=== PATIENT | female | born 1995 | race Caucasian/White ===

== ENCOUNTER → 2016-10-17 | Outpatient (REF) | payer BC ==
[~2016-10-17] MED LIST: /MOM400 PO; ACET50TA PO; ANUS2.5C2 TOP; DOCU10ELUD PO; IBUP600T26 PO; IBUP60TA PO; No Historical Meds; PERCOCET PO
[2016-10-17 17:13] LABS: MEAN CORPUSCULAR HEMOGLOBIN 26.5 pg (27.0-33.0); MEAN CORPUSCULAR HGB CONC 32.4 g/dl (32.0-36.5); MEAN CORPUSCULAR VOLUME 81.9 fl (80.0-96.0); RED CELL DISTRIBUTION WIDTH 14.1 % (11.5-14.5)
[2016-10-17 17:25] LABS: ALBUMIN 4.2 GM/DL (3.2-5.2); ALBUMIN/GLOBULIN RATIO 1.31 (1.00-1.93); ALKALINE PHOSPHATASE 99 U/L (45-117); ALT/SGPT 17 U/L (12-78); ANION GAP 7 MEQ/L (8-16); AST/SGOT 13 U/L (15-37); BILIRUBIN,TOTAL 0.8 MG/DL (0.2-1.0); BLOOD UREA NITROGEN 9 MG/DL (7-18); CALCIUM LEVEL 8.7 MG/DL (8.5-10.1); CARBON DIOXIDE LEVEL 28 MEQ/L (21-32); CHLORIDE LEVEL 108 MEQ/L (98-107); CHOLESTEROL LEVEL 177 MG/DL (<200); CREATININE FOR GFR 0.69 MG/DL (0.55-1.02); GLOMERULAR FILTRATION RATE > 60.0 (>60); GLUCOSE, FASTING 85 MG/DL (70-105); POTASSIUM SERUM 4.2 MEQ/L (3.5-5.1); SODIUM LEVEL 143 MEQ/L (136-145); TOTAL PROTEIN 7.4 GM/DL (6.4-8.2); TRIGLYCERIDES LEVEL 96 MG/DL (<150)
== END ==
LOC: M SFHCCLAY 10:35
PROVIDERS: ATTEND Family Medicine
DX: R51 Headache (principal); R63.5 Abnormal weight gain

== ENCOUNTER → 2016-10-23 | Outpatient (CLI) | payer BC ==
[2016-10-23 14:21] LABS: FREE T4 1.04 NG/DL (0.76-1.46)
== END ==
LOC: M SMT 10:28
PROVIDERS: ATTEND Advanced Practice Midwife
DX: N92.0 Excessive and frequent menstruation with regular cycle (principal)

== ENCOUNTER → 2017-04-29 | Outpatient (REF) | payer BC ==
[~2017-04-29] MED LIST changes: +INDO25CA PO; +PROZ20CA11 PO
[2017-05-02 14:17] LABS: Lyme Disease IgG/IgM Antibodie <0.91 ISR (0.00-0.90); Lyme Disease IgM Ab Quantitati <0.80 index (0.00-0.79); WEST NILE VIRUS ANTIBODY IgM Negative (Negative)
== END ==
LOC: M SFHCCLAY 11:42
PROVIDERS: ATTEND Family Medicine
DX: R50.9 Fever, unspecified (principal)

== ENCOUNTER 2017-05-05 11:22 | Emergency (ER) | payer BC ==
[~2017-05-05] VITALS: Ht 170.2 cm; Wt 68.2 kg
[~2017-05-05 11:22] MED LIST changes: -INDO25CA PO; -PROZ20CA11 PO
[2017-05-05] MEDS ORDERED: PROZ20CA11 PO (11:32)
[2017-05-05] MEDS ORDERED: KETOROLAC 30 MG/ML VIAL (J1885) IV ONE (12:00)
[2017-05-05] MEDS ORDERED: NS 1,000 ML IV ONE (12:00)
[2017-05-05] MEDS ORDERED: ACETAMINOPHEN 325 MG TAB PO ONE (12:00)
[2017-05-05 12:32] LABS: BASO % 0.6 % (0.0-1.0); EOS # 0.1 K/mm3 (0.0-0.50); EOS % 1.6 % (0.0-3.0); LARGE UNSTAINED CELL # 0.1 K/mm3 (0.0-0.4); LARGE UNSTAINED CELL % 2.2 % (0.0-4.0); LYMPH # 1.6 K/mm3 (1.5-6.5); LYMPH % 32.1 % (24.0-44.0); MEAN CORPUSCULAR HEMOGLOBIN 30.2 pg (27.0-33.0); MEAN CORPUSCULAR HGB CONC 35.1 g/dl (32.0-36.5); MEAN CORPUSCULAR VOLUME 85.9 fl (80.0-96.0); MONO # 0.3 K/mm3 (0.0-0.8); MONO % 6.1 % (0.0-5.0); NEUTROPHILS # 2.7 K/mm3 (1.8-7.7); NEUTROPHILS % 57.3 % (36.0-66.0); PLATELET COUNT, AUTOMATED 312 k/mm3 (150-450); RED CELL DISTRIBUTION WIDTH 12.6 % (11.5-14.5); WHITE BLOOD COUNT 4.8 K/mm3 (4.0-10.0)
[2017-05-05 12:55] LABS: ALBUMIN 3.6 GM/DL (3.2-5.2); ALBUMIN/GLOBULIN RATIO 0.88 (1.00-1.93); ALKALINE PHOSPHATASE 99 U/L (45-117); ALT/SGPT 19 U/L (12-78); ANION GAP 7 MEQ/L (8-16); AST/SGOT 14 U/L (15-37); BILIRUBIN,DIRECT < 0.1 MG/DL (0.0-0.2); BILIRUBIN,TOTAL 0.4 MG/DL (0.2-1.0); BLOOD UREA NITROGEN 10 MG/DL (7-18); CALCIUM LEVEL 8.6 MG/DL (8.5-10.1); CARBON DIOXIDE LEVEL 26 MEQ/L (21-32); CHLORIDE LEVEL 106 MEQ/L (98-107); CREATININE FOR GFR 0.71 MG/DL (0.55-1.02); GLOMERULAR FILTRATION RATE > 60.0 (>60); GLUCOSE, FASTING 86 MG/DL (70-105); SODIUM LEVEL 139 MEQ/L (136-145); TOTAL PROTEIN 7.7 GM/DL (6.4-8.2)
--- NOTE | 2017-05-05 12:57 | REP ---
REASON FOR EXAM: Headache. PRIORS: None. TECHNIQUE: 4.5 mm contiguous transaxial sections were obtained from the skull base to the cerebral convexities with thin cuts through the posterior fossa without the administration of intravenous contrast. FINDINGS: The ventricles and sulci are consistent with the patient's age. There are no extra-axial fluid collections. There is no mass effect. The deep cerebral white matter is consistent with the patient's age. The orbital and petrous structures , cerebellopontine angles, and posterior fossa are unremarkable. The sella turcica, cavernous, and paracavernous structures are essentially unremarkable. The visualized portions of the paranasal sinuses and mastoid air cells are clear. Images of the skull base show no gross abnormality. IMPRESSION: Essentially unremarkable CT examination of the brain. Signed by Hernesto Tan DO 05/05/2017 01:22 P
[2017-05-05] MEDS ORDERED: INDO25CA PO (13:11)
[2017-05-05 13:23] VITALS: BP 126/65
[2017-05-14 00:07] LABS: BABESIA MICROTI PCR Negative (Negative)
== END 2017-05-05 13:27 | disposition home or self-care (01) ==
LOC: M ED 11:22
DX: R51 Headache (principal); Z79.899 Other long term (current) drug therapy
CPT/HCPCS: 70450; 80048; 80076; 81025; 85025; 86140; 87798; 96361; 96374; 99283; J1885

== ENCOUNTER → 2017-05-09 | Outpatient (CLI) | payer BC ==
[~2017-05-09] MED LIST changes: +INDO25CA PO; +PROZ20CA11 PO
--- NOTE | 2017-05-09 13:53 | REP ---
REASON: Headaches. No priors for comparison. Previous brain CT of 05/05/2014 was normal. TECHNIQUE: Sagittal T1. Axial T2, FLAIR, DWI and ADC. FINDINGS: The craniocervical junction is normal. There is no cerebellar tonsillar ectopia. The visualized portions of the spinal cord and neural canal are within normal limits. The ventricles and sulci are within normal limits for the patient's age. There are no extra-axial fluid collections. There is no shift of the midline structures. The deep cerebral white matter is within normal limits. Diffusion weighted images and ADC mapping shows no signal abnormality. The orbital and petrous structures, cerebellopontine angles, and posterior fossa are within normal limits. The sella turcica, cavernous and paracavernous structures are within normal limits. The visualized portions of the paranasal sinuses and the mastoid air cells are clear. IMPRESSION: Unremarkable MRI examination of the brain. Signed by Hernesto Tan DO 05/09/2017 02:27 P
== END ==
LOC: M PLARAD 10:26
PROVIDERS: ATTEND Family Medicine
DX: G44.52 New daily persistent headache (NDPH) (principal)

== ENCOUNTER → 2017-09-23 | Outpatient (REF) | payer BC | LOC: M SFHCCLAY 09:59 | PROVIDERS: ATTEND Nurse Practitioner Family | DX: J02.9 Acute pharyngitis, unspecified (principal) ==

== ENCOUNTER → 2017-11-25 | Outpatient (REF) | payer BC | LOC: M LAB REF 14:48 | DX: Z12.4 Encounter for screening for malignant neoplasm of cervix (principal) | CPT/HCPCS: G0123 ==

== ENCOUNTER → 2018-01-28 | Outpatient (REF) | payer BC | LOC: M SFHCCLAY 14:58 | DX: H10.30 Unspecified acute conjunctivitis, unspecified eye (principal) ==

== ENCOUNTER → 2018-12-04 | Outpatient (REF) | payer BC | LOC: M LAB REF 17:10 | PROVIDERS: ATTEND Advanced Practice Midwife | DX: Z12.4 Encounter for screening for malignant neoplasm of cervix (principal) ==

== ENCOUNTER → 2019-07-07 | Outpatient (REF) | payer BC ==
[~2019-07-07] MED LIST changes: -/MOM400 PO; -ACET50TA PO; -DOCU10ELUD PO; +DOCU5LIQ PO; +IBUP600T42 PO; -IBUP60TA PO; +INDO-16 PO; -INDO25CA PO; +MAPA500T17 PO; +MILK10SU PO
== END ==
LOC: M SFHCCLAY 13:36
PROVIDERS: ATTEND Nurse Practitioner Family
DX: J02.9 Acute pharyngitis, unspecified (principal)

== ENCOUNTER → 2020-12-22 | Outpatient (CLI) | payer BC ==
[~2020-12-22] MED LIST changes: +PROHANCE 279.3MG/ML 15ML VIAL As Ordered ONE
--- NOTE | 2020-12-25 09:18 | REP ---
INDICATION: BREAST LUMP AND NIPPLE ANOMALLY. Patient reports a growth on the right nipple x2 years. COMPARISON: No comparison breast imaging. TECHNIQUE: Three Ange MRI imaging was performed with a dedicated breast coil. Axial, coronal, and sagittal T1 and T2 weighted scans were obtained with and without fat saturation in the usual fashion. The study includes dynamically acquired post gadolinium-enhanced imaging with image subtraction. Maximum intensity projection and multi planar reformation imaging is included as well. This study is interpreted with the aid of FoodynD, an FDA approved computer aided detection (CAD) software program, on a dedicated breast MRI workstation. The gadolinium enhancement dose is 14 mL of intravenous ProHance. FINDINGS: There is a moderate amount of fibroglandular tissue bilaterally corresponding with the mammographic pattern. There is marked background parenchymal enhancement. There is no evidence of axillary lymphadenopathy or significant breast cystic change. High-resolution pre and post-contrast T1 and T2 weighted scans show no suspicious morphologic abnormality in either breast. Dynamically acquired sequential postcontrast images show no suspicious area of enhancement and washout kinetics in either breast to suggest malignancy. Subtraction images show no additional abnormality. There is no observable mass in either nipple. There is a small triangular area of T2 hyperintensity and predominantly sub threshold contrast enhancement in the lateral aspect of the right nipple and adjacent subareolar region. The area of enhancement measures approximately 5 mm. This is slightly asymmetric. Study is otherwise unremarkable. IMPRESSION: BI-RADS category 3 probably benign findings. 5 mm area of slightly asymmetric T2 hyperintensity and sub threshold contrast enhancement in the lateral aspect of the right nipple. This should be correlated with physical exam findings. If histologic sampling is not elected at this time, follow-up MRI study in 6 months time should be considered. Otherwise negative MRI findings.. <Electronically signed by Pola Alegria > 12/25/20 [id number]
== END ==
LOC: M RAD 14:35
PROVIDERS: ATTEND Surgery
DX: N63.0 Unspecified lump in unspecified breast (principal); Q83.9 Congenital malformation of breast, unspecified
CPT/HCPCS: A9576; C8908

== ENCOUNTER → 2021-01-03 | Outpatient (REF) | payer BC ==
[~2021-01-03] MED LIST changes: -PROHANCE 279.3MG/ML 15ML VIAL As Ordered ONE
== END ==
LOC: M SFHCWAGY 09:07
PROVIDERS: ATTEND Surgery
DX: Q83.9 Congenital malformation of breast, unspecified (principal)

== ENCOUNTER 2021-02-13 06:17 | Day surgery (SDC) | payer BC ==
[~2021-02-13] VITALS: Ht 170.2 cm; Wt 73.9 kg
[~2021-02-13 06:17] MED LIST changes: +PREVTAB2 PO
[2021-02-13] MEDS ORDERED: HEPARIN SOD (PORCINE) 5000UNITS/ML 1ML VIAL/SYRINGE SQ ONE (06:30)
[2021-02-13] MEDS ORDERED: ceFAZolin SOD 2 GM in IV 1 EA IV ONE (06:30)
[2021-02-13] MEDS ORDERED: DESMOPRESSIN ACETATE 23 MCG in NS 50 ML IV ONE (06:30)
[2021-02-13] MEDS ORDERED: NS 1,000 ML IV ONE (06:35)
[2021-02-13] MEDS ORDERED: LIDOCAINE 1% SDV 30ML VIAL As Ordered ONE (07:09)
[2021-02-13] MEDS ORDERED: BUPIVACAINE HCL 0.25% 30ML VIAL As Ordered ONE (07:09)
[2021-02-13] MEDS ORDERED: propofoL 200 MG/20 ML VIAL As Ordered ONE (07:15)
[2021-02-13] MEDS ORDERED: dexameTHASONE 4 MG/ML 1ML VIAL (J1100 PER 1MG) As Ordered ONE (07:15)
[2021-02-13] MEDS ORDERED: LIDOCAINE 2% 100MG/5ML SDV (FOR ANES.) As Ordered ONE (07:15)
[2021-02-13] MEDS ORDERED: KETOROLAC 60MG 2ML VIAL As Ordered ONE (07:15)
[2021-02-13] MEDS ORDERED: ONDANSETRON 4MG/2ML VIAL As Ordered ONE ×2 (07:15→09:08)
[2021-02-13] MEDS ORDERED: fentaNYL 100 MCG/2 ML INJECTION (J3010) As Ordered ONE ×2 (07:28→08:25)
[2021-02-13] MEDS ORDERED: MIDAZOLAM INJ 2MG/2ML VIAL (J2250 PER 1MG) As Ordered ONE (07:28)
[2021-02-13] MEDS ORDERED: ACETAMINOPHEN 1000MG 100ML IV BTL (OFIRMEV) (J0131 PER 10MG) As Ordered ONE (08:26)
[2021-02-13] MEDS ORDERED: ULTR50TA8 PO (09:12)
[2021-02-13] MEDS ORDERED: fentaNYL 100 MCG/2 ML INJECTION (J3010) IV PRN (09:20)
[2021-02-13] MEDS ORDERED: METOCLOPRAMIDE INJ 10MG/2ML VIAL (J2765 PER 1) IV PRN (09:20)
[2021-02-13] MEDS ORDERED: LR 1,000 ML IV SCH (09:20)
[2021-02-13] MEDS ORDERED: ONDANSETRON 4MG/2ML VIAL IV PRN (09:20)
[2021-02-13] MEDS ORDERED: HYDROMORPHONE HCL 0.5 MG/ 0.5 ML SYRINGE (J1170 PER 1) IV PRN (09:20)
[2021-02-13] MEDS ORDERED: diphenhydrAMINE 50MG/ML VIAL (J1200) IV PRN (09:20)
[2021-02-13] MEDS ORDERED: oxyCODONE 5MG TAB PO PRN (09:20)
[2021-02-13 10:30] VITALS: BP 141/73
--- NOTE | 2021-02-13 16:29 | ROOPDOC ---
[facility] Report Of Operation Report of Operation DATE OF PROCEDURE: 02/13/21 PREPROCEDURE DIAGNOSES: Right lateral nipple adenoma and right medial nipple suspicious skin changes POSTPROCEDURE DIAGNOSES: same PROCEDURE: Right lateral nipple adenoma excision and right medial nipple suspicious skin changes excision SURGEON: Weston Hernandes ANESTHESIA: general ESTIMATED BLOOD LOSS: Approximately 5 mL. COMPLICATIONS: none REMARKS: DDAVP infused prior to surgery PROCEDURE NOTE: INDICATIONS: Ms. Maria Del Rosario Garcia is a 25-year-old woman who was found to have a suspicious skin changes of the right nipple. Her diagnostic mammogram and Us were negative for abnormality but MRI showed slight enhancement at the right lateral nipple. Punch biopsy was done and showed nipple adenoma. A wedge excision of the affected area was offered to the patient and she wished to proceed. Patient also noted additional skin changes on the medial aspect of the right nipple. A wedge excision of that area was also offered to the patient and she wished to proceed. She was medically cleared for surgery by her primary care doctor. Due to newly diagnosed Von Willebrand disease infusion of DDAVP was done preoperatively. Risks and possible complications of surgical procedure including bleeding, infection and injury to surrounding structures were explained to the patient and she wished to proceed. Consent was signed. My initials were placed on the operative site. Subcutaneous injection of 5000 units of heparin was done. DETAILS: Patient was taken to the operating room and placed on the operating room table. A sign in was called stating patients name, date of and the procedure to be done. Preoperative antibiotics were infused. Smooth induction of general anesthesia was done. Patients hands were extended on arm rests. Care was taken not to over extend the arms. Pillow was placed under the knees and a foam was placed under the heels. Sequential compression devices were placed and assured to function correctly. Patients right breast and axilla were prepped and draped in the usual fashion. Appropriate time out was done again prior second part of the procedure. Patients name, date of , and the procedure to be done were confirmed. Procedure was started with focusing on the medial aspect of the right nipple/areola where patient identified new suspicious skin changes. An incision was made with the scalpel on the medial aspect of nipple-areolar border. A small wedge excision was done to include the new skin changes. Full thickness excision was done down to subcutaneous fat. The excised specimen was carefully moved to the back table keeping its proper orientation. The specimen was marked with surgical inking kit following the standard colors recommendations. The specimen was labeled with patients name and right medial nipple excision and sent to pathology. Local anesthetic using 1% lidocaine and 0.25 % Marcaine 50/50 mix was then injected at the medial wedge excision site. The wound was irrigated and adequate hemostasis was achieved. The tissue defect was approximated with 4-0 Vicryl in the interrupted fashion. The skin was approximated with 5-0 Chromic stitches in the interrupted fashion. Next, my attention was turned toward the lateral side of the right nipple-areola which is the site of know adenoma. Another incision was made with the scalpel on the lateral aspect of the right nipple areolar border. A wedge excision was done to include the new skin changes. Full thickness excision was done down to subcutaneous fat. The excised specimen was carefully moved to the back table keeping its proper orientation. The specimen was marked with surgical inking kit following the standard colors recommendations. The specimen was labeled with patients name and right lateral nipple excision adenoma site and sent to pathology. Local anesthetic using 1% lidocaine and 0.25 % Marcaine 50/50 mix was then injected at the medial wedge excision site. The wound was irrigated and adequate hemostasis was achieved. The tissue defect was approximated with 4-0 Vicryl in the interrupted fashion. The skin was approximated with 5-0 Chromic stitches in the interrupted fashion. Xeroform dressings with gauze and surgical bra were placed. Sponge and instrument counts were done and were correct. Patient emerged from the anesthesia without any problems. Patient tolerated procedure well and was taken to recovery unit in stable condition. WESTON HERNANDES DO February 13, 2021 16:29
== END 2021-02-13 10:44 | disposition home or self-care (01) ==
LOC: M SDC 06:17
PROVIDERS: ATTEND Surgery
DX: D24.1 Benign neoplasm of right breast (principal); F32.9 Major depressive disorder, single episode, unspecified; F41.9 Anxiety disorder, unspecified; R51.9 Headache, unspecified; Z79.899 Other long term (current) drug therapy
CPT/HCPCS: 19120; 36415; 81025; 86850; 86900; 86901; 88305; J0131; J0690; J1100; J1644; J2250; J2405; J2597; J2765; J3010

== ENCOUNTER → 2021-03-26 | Outpatient (REF) | payer BC ==
[~2021-03-26] MED LIST changes: +ULTR50TA8 PO
[2021-03-26 18:27] LABS: BASO % 0.8 % (0.0-1.0); EOS # 0.1 10^3/uL (0.0-0.5); EOS % 0.9 % (0.0-3.0); HEMATOCRIT 39.1 % (36.0-47.0); HEMOGLOBIN 13.2 g/dl (12.0-15.5); LYMPH # 1.6 10^3/uL (1.5-5.0); LYMPH % 29.4 % (24.0-44.0); MEAN CORPUSCULAR HEMOGLOBIN 30.3 pg (27.0-33.0); MEAN CORPUSCULAR HGB CONC 33.8 g/dl (32.0-36.5); MEAN CORPUSCULAR VOLUME 89.9 fl (80.0-96.0); MONO # 0.5 10^3/uL (0.0-0.8); MONO % 9.1 % (2.0-8.0); NEUTROPHILS # 3.1 10^3/uL (1.5-8.5); NEUTROPHILS % 59.6 % (36.0-66.0); PLATELET COUNT, AUTOMATED 230 10^3/uL (150-450); RED BLOOD COUNT 4.35 10^6/uL (4.00-5.40); WHITE BLOOD COUNT 5.3 10^3/uL (4.0-10.0)
[2021-03-26 18:40] LABS: BLOOD UREA NITROGEN 11 MG/DL (7-18); CARBON DIOXIDE LEVEL 29 MEQ/L (21-32); CHLORIDE LEVEL 105 MEQ/L (98-107); CREATININE FOR GFR 0.67 MG/DL (0.55-1.30); GLOMERULAR FILTRATION RATE > 60.0 (>60); GLUCOSE, FASTING 75 MG/DL (70-100); POTASSIUM SERUM 4.1 MEQ/L (3.5-5.1); SODIUM LEVEL 138 MEQ/L (136-145)
[2021-03-26 18:41] LABS: ALBUMIN 3.9 GM/DL (3.2-5.2); ALT/SGPT 15 U/L (12-78); CALCIUM LEVEL 8.5 MG/DL (8.5-10.1); CHOLESTEROL LEVEL 172 MG/DL (<200); CHOLESTEROL RISK RATIO 2.606 (<5); FREE T4 1.03 NG/DL (0.76-1.46); HDL CHOLESTEROL 66 MG/DL (>40); LDL CHOLESTEROL 90 MG/DL (<100); NON-HDL-C 106 MG/DL; TRIGLYCERIDES LEVEL 82 MG/DL (<150)
[2021-03-26 19:14] LABS: MALB URINE SIEMENS 41.7 MG/L; MAU/CREAT RATIO 11.9 MCG/MG (0.0-30.0)
== END ==
LOC: M SFHCCLAY 11:37
PROVIDERS: ATTEND Nurse Practitioner Family
DX: I10 Essential (primary) hypertension (principal)

== ENCOUNTER → 2021-04-12 | Outpatient (CLI) | payer BC ==
[~2021-04-12] MED LIST changes: +CHLO125TA PO; +FLUO20CA22 PO; +ROXI1TAB2 PO
== END ==
LOC: M LABSMTC 09:45
PROVIDERS: ATTEND Anesthesiology
DX: Z20.828 Contact with and (suspected) exposure to other viral communicable diseases (principal); Z11.59 Encounter for screening for other viral diseases

== ENCOUNTER 2021-04-17 08:27 | Day surgery (SDC) | payer BC ==
[~2021-04-17] VITALS: Ht 170.2 cm; Wt 73.0 kg
[~2021-04-17 08:27] MED LIST changes: +HEPARIN SOD (PORCINE) 5000UNITS/ML 1ML VIAL/SYRINGE SQ ONE; +LR 1,000 ML IV ONE; -ROXI1TAB2 PO; +ceFAZolin SOD 2 GM in IV 1 EA IV ONE
[2021-04-17] MEDS ORDERED: DESMOPRESSIN ACETATE 23 MCG in NS 50 ML IV ONE (09:00)
[2021-04-17] MEDS ORDERED: MIDAZOLAM INJ 2MG/2ML VIAL (J2250 PER 1MG) As Ordered ONE (11:40)
[2021-04-17] MEDS ORDERED: fentaNYL 100 MCG/2 ML INJECTION (J3010) As Ordered ONE (11:40)
[2021-04-17] MEDS ORDERED: ONDANSETRON 4MG/2ML VIAL As Ordered ONE ×2 (11:40→14:05)
[2021-04-17] MEDS ORDERED: LIDOCAINE 2% 100MG/5ML SDV (FOR ANES.) As Ordered ONE (11:40)
[2021-04-17] MEDS ORDERED: propofoL 200 MG/20 ML VIAL As Ordered ONE (11:40)
[2021-04-17] MEDS ORDERED: METOCLOPRAMIDE INJ 10MG/2ML VIAL (J2765 PER 1) As Ordered ONE (11:40)
[2021-04-17] MEDS ORDERED: ROCURONIUM BROMIDE 50 MG/5 ML VIAL As Ordered ONE (11:40)
[2021-04-17] MEDS ORDERED: BUPIVACAINE LIPOSOME/PF 1.3% 20ML VIAL (13.3MG/ML)(EXPAREL)(C9290 PER1MG) As Ordered ONE (12:27)
[2021-04-17] MEDS ORDERED: BUPIVACAINE HCL 0.25% 30ML VIAL As Ordered ONE (13:09)
[2021-04-17] MEDS ORDERED: LIDOCAINE 1% SDV 30ML VIAL As Ordered ONE (13:09)
[2021-04-17] MEDS ORDERED: ROXI1TAB2 PO (13:54)
--- NOTE | 2021-04-17 14:01 | POST-OPPD ---
Postoperative Procedure Note Date Of Procedure: Apr 17, 2021 PREPROCEDURE DIAGNOSES: Absence of right nipple. POSTPROCEDURE DIAGNOSES: same. PROCEDURE PERFORMED: Right nipple reconstruction. SURGEON: Dr Theron DO TRANSPORTATION LEAD: Dr. Hans DO ANESTHESIA: general. ESTIMATED BLOOD LOSS: Approximately 1 mL. COMPLICATIONS: none. FINDINGS: right nipple absence CONDITION: stable This is a 26 year-old female with planned excision of the right nipple for ad enoma resection. Patient is planned to have right nipple reconstruction after the procedure. Risks, benefits and alternatives discussed with patient. Informed consent obtained. Dr. Maxwell will dictate that part of the procedure of removal of the nipple separately. Remaining opening from the nipple removal was examined. Edges undermined. Bolster of subcutaneous tissue created with purstring suture, 4-0 Vicryl. Skin was closed with local advancement to eliminate the defect using 4-0 and 4-0 Monocryl sutures. Xeroform dressing, bulky dressing and surgical bra applied. Patient extubated in operating room, tolerated procedure well, and transferred to recovery room in stable condition. RASHMI CHA DO Apr 17, 2021 14:01
--- NOTE | 2021-04-17 14:02 | ROOPDOC ---
[facility] Report Of Operation Report of Operation DATE OF PROCEDURE: 04/17/21 PREPROCEDURE DIAGNOSES: Absence of right nipple. POSTPROCEDURE DIAGNOSES: same. PROCEDURE PERFORMED: Right nipple reconstruction. SURGEON: Dr Theron DO LOAN SECRETARY: Dr. Hans DO ANESTHESIA: general. ESTIMATED BLOOD LOSS: Approximately 1 mL. COMPLICATIONS: none. FINDINGS: right nipple absence CONDITION: stable RASHMI CHA DO Apr 17, 2021 14:02
[2021-04-17] MEDS ORDERED: ONDANSETRON 4MG/2ML VIAL IV PRN (14:25)
[2021-04-17] MEDS ORDERED: LR 1,000 ML IV SCH (14:25)
[2021-04-17] MEDS ORDERED: PERCOCET 5MG/325MG TAB PO PRN (14:25)
[2021-04-17] MEDS ORDERED: fentaNYL 100 MCG/2 ML INJECTION (J3010) IV PRN (14:25)
[2021-04-17] MEDS ORDERED: METOCLOPRAMIDE INJ 10MG/2ML VIAL (J2765 PER 1) IV PRN (14:25)
[2021-04-17 15:10] VITALS: BP 132/74
[2021-04-17] MEDS ORDERED: KETOROLAC 60MG 2ML VIAL As Ordered ONE (15:23)
[2021-04-17] MEDS ORDERED: dexameTHASONE 4 MG/ML 1ML VIAL (J1100 PER 1MG) As Ordered ONE (15:23)
--- NOTE | 2021-04-17 21:33 | ROOPDOC ---
[facility] Report Of Operation Report of Operation DATE OF PROCEDURE: 04/17/21 PREPROCEDURE DIAGNOSES: right nipple adenoma POSTPROCEDURE DIAGNOSES: right nipple adenoma PROCEDURE PERFORMED: excision of the right nipple with reconstruction SURGEON: Dr Norma Hernandes SELF PAY COLLECTOR: Dr Nathaniel Crump ANESTHESIA: general ESTIMATED BLOOD LOSS: Approximately 2 mL. COMPLICATIONS: none DESCRIPTION OF PROCEDURE: INDICATIONS: Ms. Maria Del Rosario Garcia is a 25-year-old woman who was found to have a suspicious skin changes of the right nipple. Her diagnostic mammogram and Us were negative for abnormality but MRI showed slight enhancement at the right lateral nipple. Punch biopsy was done and showed nipple adenoma. A wedge excision of the affected area was offered to the patient and she wished to proceed. Patient also noted additional skin changes on the medial aspect of the right nipple. A wedge excision of that area was also offered to the patient and she wished to proceed. She was medically cleared for surgery by her primary care doctor prior to index surgery. She underwent medial and lateral wedge excision of the right nipple. Medial wedge showed benign tissue. The lateral wedge showed adenoma with positive medial and anterior margins. I informed patient that clear margin excision is recommended to avoid recurrences of the condition. Since the blood supply to the nipple is very limited at this time, additional wedge excision would not me feasible. At this time nipple excision with reconstruction was advised. Risks and possible complications of surgical procedure including bleeding, infection and injury to surrounding structures were explained to the patient and she wished to proceed. Consent was signed. My initials were placed on the operative site. Subcutaneous injection of 5000 units of heparin was done. Due to newly diagnosed Von Willebrand disease infusion of DDAVP was done preoperatively. DETAILS: Patient was taken to the operating room and placed on the operating room table. A sign in was called stating patients name, date of and the procedure to be done. Preoperative antibiotics were infused. Smooth induction of general anesthesia was done. Patients hands were extended on arm rests. Care was taken not to over extend the arms. Pillow was placed under the knees and a foam was placed under the heels. Sequential compression devices were placed and assured to function correctly. Patients right breast and axilla were prepped and draped in the usual fashion. Appropriate time out was done. Patients name, date of , and the procedure to be done were confirmed. Local anesthetic using 1% lidocaine and 0.25 % Marcaine 50/50 mix was then injected into retro-areolar region creating right nipple block. Rita-nipple incision was made with the scalpel. The right nipple was removed circumferentially with the electrocautery down to the nipple base. The excised specimen was carefully moved to the back table keeping its proper orientation. The specimen was marked with surgical inking kit following the standard colors recommendations. The specimen was labeled with patients name and right nipple and sent to pathology. at the medial wedge excision site. The wound was irrigated and adequate hemostasis was achieved. At this time, Dr. Crump who was scrubbed in throughout entire procedure, closed the tissue defect created after removal of the nipple. Please refer to her note for details. Xeroform dressings with gauze and surgical bra were placed. Sponge and instrument counts were done and were correct. Patient emerged from the anesthesia without any problems. Patient tolerated procedure well and was taken to recovery unit in stable condition. WESTON HERNANDES DO Apr 17, 2021 21:32
== END 2021-04-17 15:10 | disposition home or self-care (01) ==
LOC: M SDC 08:27
PROVIDERS: ATTEND Surgery
DX: D24.1 Benign neoplasm of right breast (principal); Q83 Congenital malformations of breast; D68.0 Von Willebrand disease; I10 Essential (primary) hypertension; F32.9 Major depressive disorder, single episode, unspecified
CPT/HCPCS: 19301; 19350; 36415; 81025; 86850; 86900; 86901; 88305; 88341; 88342; J0690; J1100; J1644; J1885; J2250; J2405; J2597; J2765; J3010

== ENCOUNTER → 2021-07-19 | Outpatient (REF) | payer BC ==
[~2021-07-19] MED LIST changes: -HEPARIN SOD (PORCINE) 5000UNITS/ML 1ML VIAL/SYRINGE SQ ONE; -LR 1,000 ML IV ONE; +ROXI1TAB2 PO; -ceFAZolin SOD 2 GM in IV 1 EA IV ONE
[2021-07-19 17:31] LABS: BASO % 0.5 % (0.0-1.0); EOS # 0.1 10^3/uL (0.0-0.5); EOS % 1.4 % (0.0-3.0); HEMATOCRIT 38.7 % (36.0-47.0); HEMOGLOBIN 13.1 g/dl (12.0-15.5); LYMPH # 1.7 10^3/uL (1.5-5.0); LYMPH % 29.7 % (24.0-44.0); MEAN CORPUSCULAR HEMOGLOBIN 30.2 pg (27.0-33.0); MEAN CORPUSCULAR HGB CONC 33.9 g/dl (32.0-36.5); MEAN CORPUSCULAR VOLUME 89.2 fl (80.0-96.0); MONO # 0.5 10^3/uL (0.0-0.8); NEUTROPHILS # 3.4 10^3/uL (1.5-8.5); NEUTROPHILS % 60.2 % (36.0-66.0); PLATELET COUNT, AUTOMATED 260 10^3/uL (150-450); RED BLOOD COUNT 4.34 10^6/uL (4.00-5.40); WHITE BLOOD COUNT 5.6 10^3/uL (4.0-10.0)
[2021-07-19 18:19] LABS: RHEUMATOID FACTOR QUANT < 10.0 IU/ML (<15.0); URIC ACID 3.2 MG/DL (2.6-6.0)
[2021-07-19 20:13] LABS: ERYTHROCYTE SEDIMENTATION RATE 11 mm/hr (0-20)
[2021-07-22 03:06] LABS: ANA (HEP2) Negative (.); CYCLIC CITRULLINATED PEPTIDE 2 units (0-19)
== END ==
LOC: M SFHCCLAY 11:25
PROVIDERS: ATTEND Family Medicine
DX: M25.531 Pain in right wrist (principal); G89.29 Other chronic pain

== ENCOUNTER → 2021-07-19 | Outpatient (CLI) | payer BC ==
--- NOTE | 2021-07-19 12:04 | REP ---
INDICATION: M25.531, PAIN IN RIGHT WRIST COMPARISON: None. TECHNIQUE: AP, lateral, bilateral oblique views right hand. FINDINGS: The osseous structures and joint spaces are intact and normal. There is no evidence for acute fracture or dislocation. Surrounding soft tissues are unremarkable. No subcutaneous emphysema or radiodense foreign body. No arthritic or degenerative changes are appreciated. IMPRESSION: Age-appropriate right hand radiographs. <Electronically signed by Raj Young > 07/19/21 1200
== END ==
LOC: M CLY 11:31
PROVIDERS: ATTEND Family Medicine
DX: M25.531 Pain in right wrist (principal)

== ENCOUNTER → 2021-11-27 | Outpatient (REF) | payer BC ==
[2021-11-27 12:24] LABS: BLOOD UREA NITROGEN 10 MG/DL (7-18); CARBON DIOXIDE LEVEL 29 MEQ/L (21-32); CHLORIDE LEVEL 105 MEQ/L (98-107); CREATININE FOR GFR 0.73 MG/DL (0.55-1.30); GLOMERULAR FILTRATION RATE > 60.0 (>60); GLUCOSE, FASTING 81 MG/DL (70-100); POTASSIUM SERUM 4.7 MEQ/L (3.5-5.1); SODIUM LEVEL 141 MEQ/L (136-145)
== END ==
LOC: M SFHCCLAY 09:36
PROVIDERS: ATTEND Family Medicine
DX: I10 Essential (primary) hypertension (principal)

== ENCOUNTER → 2022-08-28 | Outpatient (REF) | payer BC ==
[2022-08-28 19:42] LABS: BASO % 0.3 % (0.0-1.0); EOS # 0.1 10^3/uL (0.0-0.5); EOS % 1.2 % (0.0-3.0); HEMATOCRIT 40.4 % (36.0-47.0); LYMPH # 1.8 10^3/uL (1.5-5.0); LYMPH % 30.5 % (24.0-44.0); MEAN CORPUSCULAR HEMOGLOBIN 29.5 pg (27.0-33.0); MEAN CORPUSCULAR HGB CONC 32.2 g/dl (32.0-36.5); MEAN CORPUSCULAR VOLUME 91.8 fl (80.0-96.0); MONO # 0.4 10^3/uL (0.0-0.8); MONO % 6.7 % (2.0-8.0); NEUTROPHILS # 3.5 10^3/uL (1.5-8.5); PLATELET COUNT, AUTOMATED 272 10^3/uL (150-450); WHITE BLOOD COUNT 5.8 10^3/uL (4.0-10.0)
[2022-08-28 20:03] LABS: ALT/SGPT 11 U/L (7.0-40); BLOOD UREA NITROGEN 11 MG/DL (9-23); CALCIUM LEVEL 9.5 MG/DL (8.5-10.1); CARBON DIOXIDE LEVEL 26 MMOL/L (20-31); CHLORIDE LEVEL 104 MMOL/L (98-107); CREATININE FOR GFR 0.68 MG/DL (0.55-1.30); GLOMERULAR FILTRATION RATE > 60.0 (>60); GLUCOSE, FASTING 118 MG/DL (60-100); POTASSIUM SERUM 4.1 MMOL/L (3.5-5.1); RHEUMATOID FACTOR QUANT < 3.5 IU/ML (<14); SODIUM LEVEL 140 MMOL/L (136-145); TOTAL PROTEIN 6.8 G/DL (5.7-8.2)
[2022-08-28 20:04] LABS: ERYTHROCYTE SEDIMENTATION RATE 6 mm/hr (0-20)
== END ==
LOC: M SFHCCLAY 11:16
PROVIDERS: ATTEND Family Medicine
DX: H15.109 Unspecified episcleritis, unspecified eye (principal)

== ENCOUNTER → 2022-12-16 | Outpatient (REF) | payer BC | LOC: M LABDRAWC 11:29 | PROVIDERS: ATTEND Physician Assistant | DX: R19.8 Other specified symptoms and signs involving the digestive system and abdomen (principal) ==

== ENCOUNTER → 2023-01-06 | Outpatient (REF) | payer BC | LOC: M SFHCWAGY 17:28 | PROVIDERS: ATTEND Advanced Practice Midwife | DX: Z12.4 Encounter for screening for malignant neoplasm of cervix (principal); R87.610 Atypical squamous cells of undetermined significance on cytologic smear of cervix (ASC-US) ==

== ENCOUNTER → 2023-01-24 | Outpatient (REF) | payer BC | LOC: M LABDRAWC 16:57 | PROVIDERS: ATTEND Physician Assistant | DX: H20.9 Unspecified iridocyclitis (principal) ==

== ENCOUNTER → 2023-08-01 | Outpatient (REF) | payer BC ==
[2023-08-05 04:15] LABS: ALKALINE PHOSPHATASE 87 U/L (46-116); ALT/SGPT 22 U/L (7.0-40); AST/SGOT 20 U/L (<34); BLOOD UREA NITROGEN 15 MG/DL (9-23); CALCIUM LEVEL 9.1 MG/DL (8.5-10.1); CARBON DIOXIDE LEVEL 30 MMOL/L (20-31); CHLORIDE LEVEL 104 MMOL/L (98-107); CREATININE FOR GFR 0.66 MG/DL (0.55-1.30); GLOMERULAR FILTRATION RATE > 60.0 (>60); GLUCOSE, FASTING 89 MG/DL (60-100); POTASSIUM SERUM 4.5 MMOL/L (3.5-5.1); SODIUM LEVEL 139 MMOL/L (136-145); TOTAL PROTEIN 6.8 G/DL (5.7-8.2)
[2023-08-05 04:17] LABS: FREE T4 0.92 NG/DL (0.89-1.76); THYROID STIMULATING HORMONE 1.463 uIU/ML (0.55-4.78)
== END ==
LOC: M SFHCCLAY 10:24
PROVIDERS: ATTEND Physician Assistant
DX: R00.0 Tachycardia, unspecified (principal)

== ENCOUNTER → 2023-08-05 | Outpatient (REF) | payer BC ==
[2023-08-05 13:18] LABS: BASO % 0.6 % (0.0-1.0); EOS # 0.1 10^3/uL (0.0-0.5); EOS % 2.9 % (0.0-3.0); HEMATOCRIT 42.8 % (36.0-47.0); HEMOGLOBIN 13.8 g/dl (12.0-15.5); LYMPH # 1.4 10^3/uL (1.5-5.0); LYMPH % 29.9 % (24.0-44.0); MEAN CORPUSCULAR HEMOGLOBIN 29.2 pg (27.0-33.0); MEAN CORPUSCULAR HGB CONC 32.2 g/dl (32.0-36.5); MEAN CORPUSCULAR VOLUME 90.5 fl (80.0-96.0); MONO # 0.5 10^3/uL (0.0-0.8); MONO % 11.2 % (2.0-8.0); NEUTROPHILS # 2.7 10^3/uL (1.5-8.5); NEUTROPHILS % 55.2 % (36.0-66.0); PLATELET COUNT, AUTOMATED 239 10^3/uL (150-450); RED BLOOD COUNT 4.73 10^6/uL (4.00-5.40); WHITE BLOOD COUNT 4.8 10^3/uL (4.0-10.0)
== END ==
LOC: M SFHCCLAY 08:18
PROVIDERS: ATTEND Physician Assistant
DX: R00.0 Tachycardia, unspecified (principal); I10 Essential (primary) hypertension

== ENCOUNTER → 2023-09-02 | Outpatient (REF) | payer BC | LOC: M SFHCCLAY 16:57 | PROVIDERS: ATTEND Physician Assistant | DX: J02.9 Acute pharyngitis, unspecified (principal); R09.81 Nasal congestion ==

== ENCOUNTER → 2023-11-24 | Outpatient (REF) | payer BC ==
[2023-11-24 19:08] LABS: RSV AMPLIFICATION NEGATIVE (NEGATIVE)
== END ==
LOC: M SFHCCLAY 10:11
PROVIDERS: ATTEND Physician Assistant
DX: J02.9 Acute pharyngitis, unspecified (principal)

== ENCOUNTER → 2024-01-09 | Outpatient (CLI) | payer BC ==
[2024-01-09 13:51] LABS: FREE T4 1.09 NG/DL (0.89-1.76); THYROID STIMULATING HORMONE 1.667 uIU/ML (0.55-4.78)
== END ==
LOC: M PLALAB 09:59
PROVIDERS: ATTEND Advanced Practice Midwife
DX: R63.5 Abnormal weight gain (principal); Z12.4 Encounter for screening for malignant neoplasm of cervix

== ENCOUNTER → 2024-04-28 | Outpatient (CLI) | payer BC ==
[~2024-04-28] MED LIST changes: +FLUO-365 PO; -FLUO20CA22 PO
== END ==
LOC: M CLY 14:36
PROVIDERS: ATTEND Physician Assistant
DX: R05.1 Acute cough (principal)

== ENCOUNTER → 2024-06-21 | Outpatient (CLI) | payer BC | LOC: M WHC 09:19 | PROVIDERS: ATTEND Specialist | DX: N92.0 Excessive and frequent menstruation with regular cycle (principal) ==

== ENCOUNTER 2024-11-05 10:44 | Day surgery (SDC) | payer BC ==
[~2024-11-05] VITALS: Ht 170.2 cm; Wt 84.5 kg
[~2024-11-05 10:44] MED LIST changes: +NADO20TA PO; +NORG0.25 PO
[2024-11-05] MEDS ORDERED: fentaNYL 100 MCG/2 ML INJECTION As Ordered ONE (10:50)
[2024-11-05] MEDS ORDERED: MIDAZOLAM INJ 2MG/2ML VIAL As Ordered ONE (10:50)
[2024-11-05] MEDS ORDERED: HYDROmorphone HCL 2MG/ML 1ML VIAL As Ordered ONE (10:50)
[2024-11-05] MEDS ORDERED: METOCLOPRAMIDE INJ 10MG/2ML VIAL As Ordered ONE (10:52)
[2024-11-05] MEDS ORDERED: KETOROLAC 60MG 2ML VIAL As Ordered ONE (10:53)
[2024-11-05] MEDS ORDERED: propofoL 200 MG/20 ML VIAL As Ordered ONE (10:53)
[2024-11-05] MEDS ORDERED: ONDANSETRON 4MG 2ML VIAL As Ordered ONE (10:53)
[2024-11-05] MEDS ORDERED: ROCURONIUM BROMIDE 50MG/5ML VIAL As Ordered ONE (10:53)
[2024-11-05] MEDS ORDERED: LIDOCAINE 2% 100MG/5ML SDV (FOR ANES.) As Ordered ONE (10:53)
[2024-11-05] MEDS ORDERED: ACETAMINOPHEN 1000MG/100ML IV BAG As Ordered ONE (10:56)
[2024-11-05] MEDS ORDERED: SUGAMMADEX SODIUM 500 MG/5 ML VIAL (BRIDION) As Ordered ONE (10:57)
[2024-11-05 11:21] LABS: HEMATOCRIT 38.3 % (36.0-47.0); HEMOGLOBIN 12.6 g/dl (12.0-15.5); MEAN CORPUSCULAR HEMOGLOBIN 29.6 pg (27.0-33.0); MEAN CORPUSCULAR HGB CONC 32.9 g/dl (32.0-36.5); MEAN CORPUSCULAR VOLUME 90.1 fl (80.0-96.0); PLATELET COUNT, AUTOMATED 233 10^3/uL (150-450); RED BLOOD COUNT 4.25 10^6/uL (4.00-5.40); WHITE BLOOD COUNT 4.7 10^3/uL (4.0-10.0)
[2024-11-05] MEDS ORDERED: NS (Normal Saline) 0.9% 1,000 ML IV SCH ×2 (11:30→13:40)
[2024-11-05] MEDS: SCOPOLAMINE 1MG TRANSDERMAL PATCH TOP ONE (11:34)
[2024-11-05] MEDS: DESMOPRESSIN ACETATE 20 MCG in NS 50 ML IV ONE (11:40)
[2024-11-05] MEDS ORDERED: OXYC1TAB23 PO (11:52)
[2024-11-05] MEDS ORDERED: IBUP-1022 PO (11:54)
[2024-11-05] MEDS ORDERED: COLA100C5 PO (11:54)
[2024-11-05] MEDS: ceFAZolin SOD 2 GM in IV 1 EA IV ONE (12:14)
[2024-11-05] MEDS ORDERED: ePHEDrine SULFATE 25 MG/5 ML(5MG/ML) SYRINGE As Ordered ONE (12:28)
[2024-11-05] MEDS ORDERED: fentaNYL 100 MCG/2 ML INJECTION IV PRN (13:40)
[2024-11-05] MEDS ORDERED: ONDANSETRON 4MG 2ML VIAL IV PRN (13:40)
[2024-11-05] MEDS ORDERED: HYDROMORPHONE HCL 0.5 MG/ 0.5 ML SYRINGE IV PRN (13:40)
[2024-11-05] MEDS ORDERED: oxyCODONE 5MG TAB PO PRN (13:40)
[2024-11-05 14:35] VITALS: BP 113/58; TEMP 98.5; O2SAT 98
== END 2024-11-05 14:54 | disposition home or self-care (01) ==
LOC: M SDC 10:44
PROVIDERS: ATTEND Specialist
DX: N92.0 Excessive and frequent menstruation with regular cycle (principal); D68.00 Von Willebrand disease, unspecified; I10 Essential (primary) hypertension; F41.9 Anxiety disorder, unspecified; F32.A Depression, unspecified; Z79.899 Other long term (current) drug therapy; Z85.3 Personal history of malignant neoplasm of breast
CPT/HCPCS: 36415; 58571; 81025; 85027; 86850; 86900; 86901; 88307; J0131; J0665; J0690; J1100; J1171; J1885; J2250; J2405; J2597; J2765; J3010; S2900

== ENCOUNTER → 2024-11-19 | Outpatient (REF) | payer BC ==
[~2024-11-19] MED LIST changes: +COLA100C5 PO; +IBUP-1022 PO; +OXYC1TAB23 PO
[2024-11-19 19:11] LABS: ALBUMIN 3.9 G/DL (3.2-5.2); ALKALINE PHOSPHATASE 94 U/L (35-104); ALT/SGPT 14 U/L (7.0-40); AST/SGOT 13 U/L (<34); BILIRUBIN,TOTAL 0.7 MG/DL (0.3-1.2); BLOOD UREA NITROGEN 14 MG/DL (9-23); CALCIUM LEVEL 9.6 MG/DL (8.5-10.1); CARBON DIOXIDE LEVEL 29 MMOL/L (20-31); CHLORIDE LEVEL 103 MMOL/L (98-107); CHOLESTEROL LEVEL 239 MG/DL (<200); CHOLESTEROL RISK RATIO 3.86 (<5); CREATININE FOR GFR 0.67 MG/DL (0.55-1.30); GLOMERULAR FILTRATION RATE > 60.0 (>60); GLUCOSE, FASTING 85 MG/DL (60-100); HDL CHOLESTEROL 61.8 MG/DL (>40); LDL CHOLESTEROL 158.2 MG/DL (<100); NON-HDL-C 177.2 MG/DL; POTASSIUM SERUM 4.8 MMOL/L (3.5-5.1); SODIUM LEVEL 139 MMOL/L (136-145); TOTAL PROTEIN 7.2 G/DL (5.7-8.2); TRIGLYCERIDES LEVEL 95 MG/DL (<150)
[2024-11-19 19:24] LABS: HEMOGLOBIN A1c 5.1 % (4.0-6.0)
== END ==
LOC: M SFHCCLAY 10:08
PROVIDERS: ATTEND Physician Assistant
DX: F32.A Depression, unspecified (principal); R55 Syncope and collapse; D68.00 Von Willebrand disease, unspecified; I10 Essential (primary) hypertension

== ENCOUNTER → 2024-12-21 | Outpatient (REF) | payer BC | LOC: M SFHCWAGY 13:00 | PROVIDERS: ATTEND Specialist | DX: N39.0 Urinary tract infection, site not specified (principal) ==